=== PATIENT | male | born 1960 | race Caucasian/White ===

== ENCOUNTER 2016-11-01 00:18 | Emergency (ER) | payer SELFPAY ==
[~2016-11-01] VITALS: Ht 177.8 cm; Wt 86.0 kg
[2016-11-01 00:24] VITALS: Ht 177.8 cm; Wt 86.0 kg
== END 2016-11-01 02:40 | disposition left against medical advice (07) ==
LOC: FTE 00:18
DX: Z53.21 Procedure and treatment not carried out due to patient leaving prior to being seen by health care provider (principal)